=== PATIENT | male | born 1995 | race Caucasian/White ===

== ENCOUNTER 2021-12-02 11:53 | Inpatient (IN) | payer OTHER, SELFPAY ==
[2021-12-02 12:00] VITALS: BP 126/69; PULSE 84; RESP 16; TEMP 37.7; O2SAT 99; BMI 23.1
[2021-12-02] MEDS: KETOROLAC 30 MG/ML VIAL 15 MG IV (12:07)
--- NOTE | 2021-12-02 12:08 | ED.ABDPAIN ---
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 He said yesterday he was fine he worked however this morning woke up with pretty significant lower abdominal pain. [facility] he had [facility] CT which did confirm appendicitis, and sent here. He comes with a disc he says he has blood work I do not have report of the blood work. He definitely has pain with movement. Decreased appetite. Says his right over in the ambulance was quite painful. Related Data Home Medications Medication Instructions Recorded Confirmed No Known Home Medications 12/02/21 12/02/21 Allergies Allergy/AdvReac Type Severity Reaction Status Date / Time tree nut Allergy Verified 12/02/21 12:08 whey protein Allergy Uncoded 12/02/21 12:08 Review of Systems Review of Systems Narrative: GENERAL: Denies chills, fatigue, malaise, fever, sweats, travel HEENT: Denies sinus pain, ear pain, sore throat, difficulty swallowing, neck pain RESPIRATORY: Denies dyspnea, cough, wheezing, hemoptysis, sputum. CARDIOVASCULAR: Denies chest pain, palpitations, orthopnea, edema GASTROINTESTINAL: see HPI : Denies dysuria, frequency, incontinence, hematuria, urinary retention, flank pain. MUSCULOSKELETAL: Denies weakness, joint pain, or bony pain SKIN: No rash, no erythema, no pruritus NEUROLOGIC: Denies weakness, dizziness, headache, numbness, change in speech, confusion PSYCHIATRIC: No concerning psychosocial issues. 12 point review of systems is negative except for those stated above and HPI Patient History Social History household members: significant other Smoking Status: Never smoker alcohol intake: current Smoking Status: Never smoker alcohol intake frequency: holidays/special occasions only Substance Use Type: does not use Exam Initial Vital Signs Initial Vital Signs: Vital Signs Temperature 99.8 F H 12/02/21 12:00 Pulse Rate 84 12/02/21 12:00 Respiratory Rate 16 12/02/21 12:00 Blood Pressure 126/69 12/02/21 12:00 Pulse Oximetry 99 12/02/21 12:00 Oxygen Delivery Method 12/02/21 12:00 GENERAL: Alert 26-year-old male appears uncomfortable HEENT: Head atraumatic,EOMI, pupils reactive, face symmetric, moist mucous membranes CARDIOVASCULAR: Regular rate and rhythm without murmurs, rubs or gallops. RESPIRATORY: Breath sounds equal bilaterally, no wheezes rales or rhonchi. ABDOMEN: Soft, quite tender with peritoneal signs no distention more tender in right lower quadrant EXTREMITIES: Normal range of motion, no clubbing or edema. Neurovascularly intact NEUROLOGICAL: Alert and oriented x4. SKIN: Warm, dry, no laceration, no petechiae, no rashes or lesions. Course Orders Ordered: ED Orders 12/02/21 12:10 CBC Auto Diff [Complete Blood Count AUTO DIFF] Stat CMP [Comprehensive Metabolic Panel] Stat COVID19 -Nasal RAPID/Pre-Proc Stat Lipase Stat Acetaminophen (Acetaminophen 325 Mg Tablet) 650 mg PO Q6HR [facility] Last Admin: 12/02/21 17:11 Dose: Not Given Documented By: LDV Hydromorphone HCl (Hydromorphone 0.5 Mg Inj) 0.5 mg IV Q4H PRN PRN Reason: Breakthrough pain only (8-10) Last Admin: 12/02/21 15:35 Dose: 0.5 mg Documented By: LDV Sodium Chloride (Normal Saline 0.9%) 1,000 mls @ 100 mls/hr IV CONT [facility] Last Admin: 12/02/21 14:12 Dose: 100 mls/hr Documented By: TLS Piperacillin Sod/Tazobactam (Sod 3.375 gm/ Sodium Chloride) 100 mls @ 25 mls/hr IV Q8H [facility] Last Infusion: 12/02/21 19:11 Dose: 0 mls/hr Documented By: Admin: 12/02/21 14:12 Dose: 25 mls/hr Documented By: TLS Ketorolac Tromethamine (Ketorolac 30 Mg/Ml Vial) 30 mg IV Q6H [facility] Stop: 12/05/21 12:59 Last Admin: 12/02/21 18:03 Dose: 30 mg Documented By: Admin: 12/02/21 14:12 Dose: Not Given Documented By: TLS Ondansetron HCl (Ondansetron 4 Mg/2 Ml Inj) 4 mg IV Q8HR PRN PRN Reason: Nausea And Vomiting Last Admin: 12/02/21 13:17 Dose: 4 mg Documented By: ALEJO Oxycodone HCl (Oxycodone Ir 5 Mg Tablet) 5 mg PO Q4HR PRN PRN Reason: Pain, Moderate (4-6) Last Admin: 12/02/21 18:03 Dose: 5 mg Documented By: LDV Discontinued Medications Piperacillin Sod/Tazobactam (Sod 4.5 gm/ Sodium Chloride) 100 mls @ 200 mls/hr IV NOW ONE Stop: 12/02/21 12:20 Last Infusion: 12/02/21 13:18 Dose: 200 mls/hr Documented By: Admin: 12/02/21 12:32 Dose: 200 mls/hr Documented By: ALEJO Ketorolac Tromethamine (Ketorolac 30 Mg/Ml Vial) 15 mg IV NOW ONE Stop: 12/02/21 12:01 Last Admin: 12/02/21 12:07 Dose: 15 mg Documented By: ALEJO Morphine Sulfate (Morphine 2 Mg/Ml Inj) 2 mg IV NOW ONE Stop: 12/02/21 12:20 Last Admin: 12/02/21 12:32 Dose: 2 mg Documented By: ALEJO Morphine Sulfate (Morphine 4 Mg/Ml Inj) 4 mg IV NOW ONE Stop: 12/02/21 13:09 Last Admin: 12/02/21 13:14 Dose: 4 mg Documented By: ALEJO Vital Signs Vital signs: Vital Signs - 8 hr 12/02/21 12:00 Temperature 99.8 F H Pulse Rate 84 Respiratory Rate 16 Blood Pressure 126/69 Pulse Oximetry 99 Oxygen Delivery Method Room Air MDM - Abdominal Pain Lab Data Result diagrams: 12/02/21 12:10 12/02/21 12:10 Labs: Lab Results 12/02/21 12/02/21 12/02/21 Range/Units 12:10 12:10 12:10 WBC 14.3 H (4.5-11.0) X10^3/uL RBC 4.32 L (4.5-5.9) X10^6/uL Hgb 13.5 (13.5-17.5) g/dL Hct 39.8 L (41-53) % MCV 92.3 (80-100) fL MCH 31.3 (26-34) PG MCHC 33.9 (30-36) % RDW 12.8 (11.6-14.8) % Plt Count 194 (150-400) X10^3/uL Neut % (Auto) 83.8 H (50-75) % Lymph % (Auto) 8.2 L (25-40) % [place] % (Auto) 7.7 (3-14) % Eos % (Auto) 0.1 L (2-4) % Baso % (Auto) 0.2 (0-2) % Neut # (Auto) 72253 H (7506-3729) /uL Lymph # (Auto) 1200 (5985-9729) /uL [place] # (Auto) 1100 H (0-900) /uL Eos # (Auto) 0 (0-450) /uL Baso # (Auto) 0 (0-100) /uL Sodium 138 (137-145) mmol/L Potassium 3.7 (3.4-5.1) mmol/L Chloride 101 (98-107) mmol/L Carbon Dioxide 25 (22-32) mmol/L BUN 14 (9-20) mg/dL Creatinine 0.90 (0.66-1.25) mg/dL Estimated GFR > 60 (>60) mL/min BUN/Creatinine Ratio 15.6 (6-22) Glucose 107 H (70-100) mg/dL Calcium 9.4 (8.4-10.2) mg/dL Total Bilirubin 0.7 (0.2-1.3) mg/dL AST 23 (17-59) IU/L ALT 16 (<50) IU/L Alkaline Phosphatase 77 (38-126) U/L Total Creatine Kinase (55-170) U/L Total Protein 7.7 (6.3-8.2) g/dL Albumin 4.7 (3.5-5.0) g/dL Globulin 3.0 (1.7-4.1) g/dL Albumin/Globulin Ratio 1.6 (1.0-2.8) Lipase 48 (23-300) U/L SARS-CoV-2 (PCR) Negative (Negative) 12/02/21 Range/Units 12:10 WBC (4.5-11.0) X10^3/uL RBC (4.5-5.9) X10^6/uL Hgb (13.5-17.5) g/dL Hct (41-53) % MCV (80-100) fL MCH (26-34) PG MCHC (30-36) % RDW (11.6-14.8) % Plt Count (150-400) X10^3/uL Neut % (Auto) (50-75) % Lymph % (Auto) (25-40) % [place] % (Auto) (3-14) % Eos % (Auto) (2-4) % Baso % (Auto) (0-2) % Neut # (Auto) (0176-5595) /uL Lymph # (Auto) (6026-3090) /uL [place] # (Auto) (0-900) /uL Eos # (Auto) (0-450) /uL Baso # (Auto) (0-100) /uL Sodium (137-145) mmol/L Potassium (3.4-5.1) mmol/L Chloride (98-107) mmol/L Carbon Dioxide (22-32) mmol/L BUN (9-20) mg/dL Creatinine (0.66-1.25) mg/dL Estimated GFR (>60) mL/min BUN/Creatinine Ratio (6-22) Glucose (70-100) mg/dL Calcium (8.4-10.2) mg/dL Total Bilirubin (0.2-1.3) mg/dL AST (17-59) IU/L ALT (<50) IU/L Alkaline Phosphatase (38-126) U/L Total Creatine Kinase 110 (55-170) U/L Total Protein (6.3-8.2) g/dL Albumin (3.5-5.0) g/dL Globulin (1.7-4.1) g/dL Albumin/Globulin Ratio (1.0-2.8) Lipase (23-300) U/L SARS-CoV-2 (PCR) (Negative) MDM Narrative Medical decision making narrative: Blood work is pending. Records from [employer] [facility] are also pending however 1 note that I do have states that there is a CT that confirmed acute appendicitis without perforation or abscess. Dr. Hitchcock surgery has been notified and accepts patient. Requests Zosyn. Discharge Plan Departure Patient Disposition: Admitted As Inpatient Clinical Impression: Acute appendicitis Admit Date/Time: 09/13/22 12:33 Admit Provider: Felix Hitchcock
[2021-12-02 12:27] LABS: Add Manual Diff / Slide Review NO; Basophils Absolute Auto 0 /uL (0-100); Basophils Percent Auto 0.2 % (0-2); Eosinophils Absolute Auto 0 /uL (0-450); Eosinophils Percent Auto 0.1 % (2-4); Hematocrit 39.8 % (41-53); Hemoglobin 13.5 g/dL (13.5-17.5); Lymphocytes Absolute Auto 1200 /uL (1100-4500); Lymphocytes Percent Auto 8.2 % (25-40); Mean Corpuscular HGB Conc 33.9 % (30-36); Mean Corpuscular Hemoglobin 31.3 PG (26-34); Mean Corpuscular Volume 92.3 fL (80-100); Monocytes Absolute Auto 1100 /uL (0-900); Monocytes Percent Auto 7.7 % (3-14); Neutrophils Absolute Auto 12000 /uL (1500-7000); Neutrophils Percent Auto 83.8 % (50-75); Platelet Count 194 X10^3/uL (150-400); Red Blood Cell Count 4.32 X10^6/uL (4.5-5.9); Red Cell Distribution Width 12.8 % (11.6-14.8); White Blood Cell Count 14.3 X10^3/uL (4.5-11.0)
[2021-12-02] MEDS: MORPHINE 2 MG/ML INJ IV (12:32)
[2021-12-02] MEDS: PIPERACILLIN/TAZO 4.5 GM in SODIUM CHLORIDE 0.9% 100 ML IV (12:32)
[2021-12-02 12:41] LABS: COVID19 -Nasal RAPID Negative (Negative)
[2021-12-02 12:44] LABS: Alanine Aminotransferase 16 IU/L (<50); Albumin 4.7 g/dL (3.5-5.0); Albumin Globulin Ratio 1.6 (1.0-2.8); Alkaline Phosphatase 77 U/L (38-126); Aspartate Aminotransferase 23 IU/L (17-59); BUN Creatinine Ratio 15.6 (6-22); Bilirubin Total 0.7 mg/dL (0.2-1.3); Blood Urea Nitrogen 14 mg/dL (9-20); Calcium 9.4 mg/dL (8.4-10.2); Carbon Dioxide 25 mmol/L (22-32); Chloride 101 mmol/L (98-107); Estimated Glomerular Filt Rate > 60 mL/min (>60); Glucose 107 mg/dL (70-100); HEMOLYSIS < 15 (0-50); Lipase 48 U/L (23-300); Potassium 3.7 mmol/L (3.4-5.1); Sodium 138 mmol/L (137-145); Total Protein 7.7 g/dL (6.3-8.2)
[2021-12-02] MEDS: MORPHINE 4 MG/ML INJ IV (13:14)
[2021-12-02] MEDS: ONDANSETRON 4 MG/2 ML INJ IV (13:17)
[2021-12-02 13:30] VITALS: BP 113/64; PULSE 79; RESP 18; TEMP 36.2; O2SAT 99
[2021-12-02 13:38] VITALS: BMI 23.1
[2021-12-02 13:47] LABS: Creatine Kinase 110 U/L (55-170)
[2021-12-02 13:50] VITALS: O2SAT 99
--- NOTE | 2021-12-02 13:52 | PM.HP.1 ---
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 He developed abdominal pain was evaluated at the [facility] or he subsequently underwent a CT abdomen pelvis demonstrating appendicitis and then was transferred to our hospital. No prior abdominal surgery. He is feeling better than on arrival in is been receiving Zosyn. Patient History Family & Social History Social History: household members significant other Prior Living Arrangements House Safety & Behavioral: Feels Safe in Current Yes Environment Been Physically Hurt or No Threatened By a Person Tobacco & Substance use: Smoking Status Never smoker alcohol intake current alcohol intake frequency 0-2 drinks per day Substance Use Type does not use Meds Home Medications and Allergies Home Medications Medication Instructions Recorded Confirmed Type No Known Home Medications 12/02/21 12/02/21 History Allergies Allergy/AdvReac Type Severity Reaction Status Date / Time tree nut Allergy Verified 12/02/21 12:08 whey protein Allergy Uncoded 12/02/21 12:08 Exam Vital Signs (past 8 hours): - 12/02/21 12:00 12/02/21 13:30 12/02/21 13:50 Temperature 99.8 F H 97.2 F L Pulse Rate 84 79 Respiratory Rate 16 18 Blood Pressure 126/69 113/64 Pulse Oximetry 99 99 99 Oxygen Delivery Method Room Air Room Air Oxygen Flow Rate 0 0 Oxygen Delivery Method Room Air Oxygen Flow Rate 0 Narrative Exam Narrative: General adult male alert oriented no acute distress Chest nonlabored respirations Abdomen tender right lower quadrant. No hoang peritonitis. Objective Labs Result Diagrams: 12/02/21 12:10 12/02/21 12:10 Labs: Laboratory Results - last 24 hr 12/02/21 12/02/21 12/02/21 12:10 12:10 12:10 WBC 14.3 H RBC 4.32 L Hgb 13.5 Hct 39.8 L MCV 92.3 MCH 31.3 MCHC 33.9 RDW 12.8 Plt Count 194 Neut % (Auto) 83.8 H Lymph % (Auto) 8.2 L [place] % (Auto) 7.7 Eos % (Auto) 0.1 L Baso % (Auto) 0.2 Neut # (Auto) 85262 H Lymph # (Auto) 1200 [place] # (Auto) 1100 H Eos # (Auto) 0 Baso # (Auto) 0 Sodium 138 Potassium 3.7 Chloride 101 Carbon Dioxide 25 BUN 14 Creatinine 0.90 Estimated GFR > 60 BUN/Creatinine Ratio 15.6 Glucose 107 H Calcium 9.4 Total Bilirubin 0.7 AST 23 ALT 16 Alkaline Phosphatase 77 Total Creatine Kinase Total Protein 7.7 Albumin 4.7 Globulin 3.0 Albumin/Globulin Ratio 1.6 Lipase 48 SARS-CoV-2 (PCR) Negative 12/02/21 12:10 WBC RBC Hgb Hct MCV MCH MCHC RDW Plt Count Neut % (Auto) Lymph % (Auto) [place] % (Auto) Eos % (Auto) Baso % (Auto) Neut # (Auto) Lymph # (Auto) [place] # (Auto) Eos # (Auto) Baso # (Auto) Sodium Potassium Chloride Carbon Dioxide BUN Creatinine Estimated GFR BUN/Creatinine Ratio Glucose Calcium Total Bilirubin AST ALT Alkaline Phosphatase Total Creatine Kinase 110 Total Protein Albumin Globulin Albumin/Globulin Ratio Lipase SARS-CoV-2 (PCR) Assessment & Plan Assessment and plan (1) Acute appendicitis: Status: Acute Assessment & Plan narrative: 26-year-old male with appendicitis without abscess. I reviewed his CT abdomen pelvis images personally which demonstrates acute appendicitis without abscess or free air. We discussed management options including conservative therapy and surgical intervention. He is concerned about the risk of recurrence with conservative management and his preference is to proceed with appendectomy which can be accommodated tomorrow. Overview the operation was discussed with the patient. Operative risks including bleeding, infection, damage to surrounding structures, anesthetic complication and were discussed. His questions have been answered he is in agreement with this plan. -diet as tolerated until midnight -Zosyn Time Spent With Patient Critical Care time: I spent a total of [] minutes of critical care time on this patient's care today; this time is exclusive of procedural time. Quality VTE Deep Vein Thrombosis/Pulmonary Embolism Present on Admission: No
[2021-12-02] MEDS: PIPERACILLIN/TAZO 3.375 GM in SODIUM CHLORIDE 0.9% 100 ML IV ×2 (14:12→20:10)
[2021-12-02] MEDS: SODIUM CHLORIDE 0.9% 1,000 ML 100 ML IV (14:12)
[2021-12-02] MEDS: HYDROMORPHONE 0.5 MG INJ IV (15:35)
[2021-12-02 17:00] VITALS: BP 107/61; PULSE 72; RESP 18; TEMP 36.7; O2SAT 100
[2021-12-02] MEDS: KETOROLAC 30 MG/ML VIAL IV (18:03)
[2021-12-02] MEDS: OXYCODONE IR 5 MG TABLET PO (18:03)
[2021-12-02 19:35] VITALS: O2SAT 98
[2021-12-02 20:50] VITALS: BP 100/61; PULSE 71; RESP 22; TEMP 36.8; O2SAT 98
[2021-12-03] VITALS (16 sets, daily range): BP systolic 99–137; BP diastolic 57–71; PULSE 63–92; RESP 12–20; TEMP 36.1–37.2; O2SAT 98–100; BMI 22.9
--- NOTE | 2021-12-03 | PATH_ITS ---
[facility] Accession Number: [id number] . 01 Material submitted: . appendix - APPENDIX . 01 Diagnosis: Vermiform Appendix, Appendectomy: Acute transmural appendicitis and periappendicitis. Negative for neoplasia. MRV 12/05/2021 1649 Local . 01 Electronically signed: . Deepika Ellis MD, Pathologist NPI- [id number] . 01 Gross description: . The specimen is received in formalin labeled with the patient's name and appendix, and consists of a vermiform appendix measuring 8.5 cm in length and 1.0 cm in diameter. The serosa is rowe with a moderate amount of white adherent material consistent with exudate. No perforations are identified. The surgical margin is received closed with aida which are moved, and the margin is inked blue. Sectioning reveals a patent pinpoint lumen averaging 0.1 cm in diameter with no fecaliths identified. The liz are rowe and average 0.3 cm thick. No lesions are identified. Asbestos Handler sections to include the surgical margin, one-half of the bisected distal tip, and field support representative cross-sections are submitted in cassette A1. ([id number]) /MRV 12/04/2021 1229 Local . 01 Pathologist provided ICD-10: K35.80 . 01 CPT . 613272 Specimen Comment: A courtesy copy of this report has been sent to [phone] Performed at: [address] [facility] [address], [id number] MD Gerardo Bush MD Phone: [phone]
[2021-12-03] MEDS: SODIUM CHLORIDE 0.9% 1,000 ML 100 ML IV ×2 (00:36→10:10)
[2021-12-03] MEDS: ACETAMINOPHEN 325 MG TABLET 650 MG PO ×3 (00:37→18:23)
[2021-12-03] MEDS: OXYCODONE IR 5 MG TABLET PO ×3 (00:37→21:06)
[2021-12-03] MEDS: KETOROLAC 30 MG/ML VIAL IV ×2 (00:37→05:57)
[2021-12-03] MEDS: PIPERACILLIN/TAZO 3.375 GM in SODIUM CHLORIDE 0.9% 100 ML IV (05:47)
[2021-12-03 06:08] LABS: Add Manual Diff / Slide Review NO; Basophils Absolute Auto 0 /uL (0-100); Basophils Percent Auto 0.4 % (0-2); Eosinophils Absolute Auto 100 /uL (0-450); Eosinophils Percent Auto 1.1 % (2-4); Hematocrit 35.6 % (41-53); Lymphocytes Absolute Auto 1700 /uL (1100-4500); Mean Corpuscular HGB Conc 33.8 % (30-36); Mean Corpuscular Hemoglobin 31.2 PG (26-34); Mean Corpuscular Volume 92.4 fL (80-100); Monocytes Absolute Auto 1100 /uL (0-900); Monocytes Percent Auto 10.5 % (3-14); Neutrophils Absolute Auto 7100 /uL (1500-7000); Platelet Count 171 X10^3/uL (150-400); Red Blood Cell Count 3.85 X10^6/uL (4.5-5.9); Red Cell Distribution Width 12.6 % (11.6-14.8); White Blood Cell Count 10.1 X10^3/uL (4.5-11.0)
--- NOTE | 2021-12-03 07:53 | SUR.PREOP ---
12/03/21-chart reviewed for pending surgery today.
--- NOTE | 2021-12-03 10:24 | PC.NURSE ---
Addendum entered by Barbi Gray R.N. 12/03/21 17:13: Returned from PACU @ 1500 A/O 3 lap site across abdomen, CDI ELVIRA drain intact/patent, some drainage noted on dsg. Denies discomfort @ this time. Satisfactory post op course. Call light w/in reach, pt calls appropriately for needs. Continue w/plan of care. Addendum entered by Barbi Gray R.N. 12/03/21 12:32: 1125: pt escorted to OR by staff. \ Original Note: Pt A/O, denies discomfort at this time SpO2 99% RA IVF NS @ 100cc/hr infusing into the RAC via pump w/o incidence. Pt NPO for surgery this afternoon. Call light w/in reach, pt calls appropriately for needs.
--- NOTE | 2021-12-03 10:51 | CM.DANOTE ---
DCP Assessment: Payor confirmed: Sarahi Pollard PCP: [facility] PCM. Pt is a 26 y.o. M who presented to the ER for acute appenditicits. Pt was seen at [facility] and CT showed appendicitis. Pt complained of pain upon movement. Dr. Hitchcock was notified and accepted the pt. Pt to have appendectomy today @ 1215. DCP met with pt and pt significant other this morning to discuss discharge needs. Pt laying in bed. DCP introduced self and role. Pt is independent at baseline. No DME's. Drives POV. Works on the [facility]. Significant other, Rut, will take pt home in POV upon discharge. Pt thankful for discussion. White board updated and instructed to call. P: Pt to have surgical procedure this afternoon. Once pt is medically stable for discharge, pt to discharge home via [employer] POV. DCP available if discharge needs arise. Karena Santiago RN/TORI Discharge Planning/Care Management CM Discharge Assessment Start: 12/03/21 10:50 Freq: Status: Active Protocol: Document 12/03/21 10:50 LATONIA (Rec: 12/03/21 10:51 [id number]) Discharge Planning Assessment Assigned Website Designer Karena Santiago RN/TORI Advance Directives? No History Provided By Patient Prior Living Arrangements House Household Members significant other Type of transporation used prior to Drives own vehicle admit Independent with ADL's Yes Is patient alert and oriented? Yes Caregiver for Another No Barriers to Discharge No Discharge Plan Home Referrals Initiated None needed Whiteboard Updated in Patient Room with Yes name and ext. # of Website Designer Comment Instructed to call Review Status In Process Please Provide Date Initial DC 12/03/21 Assessment Was Performed Next Review Type Continued Stay Review
--- NOTE | 2021-12-03 12:18 | PM.PREOP ---
Pre-operative Note COVID-19 COVID-19 status: Negative Result date/Date tested (Pos, Neg/Pending): 12/02/21 Criteria for continued procedure: Expected advancement of disease process Interval Note History & Physical reviewed/Exam performed by Physician: Yes Changes to H&P: No
--- NOTE | 2021-12-03 13:19 | SUR.OPER ---
Supine on padded OR bed, head on pillow, arms padded and tucked at sides, legs uncrossed, safety belt at thigh, tape over blanket over lower legs .
--- NOTE | 2021-12-03 14:27 | PM.OP.1 ---
Operative Date/Time/Diagnoses Date of procedure: 12/03/21 Time of procedure: 14:27 Pre-op diagnosis: Acute appendicitis Post-op diagnosis: other (Ruptured appendicitis) Procedure & Clinicians Procedure: Laparoscopic appendectomy Same procedure as scheduled: Yes Indications: Ruptured appendicitis Surgeon: Deepika Barker Click Yes if Unassisted: Yes Anesthesia Type: General Operative Notes Findings: Grade 3 appendicitis, ruptured Closure Type: primary Specimen(s): none sent (Appendix) Applied: drain(s) Procedure in detail: Preop diagnosis: Acute appendicitis Postop diagnosis: ruptured appendicitis Operative procedure: Laparoscopic appendectomy Surgeon: Danya Barker MD Anesthetic: General with ET tube intubation with local Findings: Ruptured appendicitis Procedure: Patient placed in a supine position. Prepped and draped in sterile fashion to expose the abdomen. Infraumbilical port site was placed using an open technique a 12 mm port. Insufflation began all other ports were placed under direct vision including a 5 mm port the suprapubic position. One 5 mm port in the left lateral abdomen. Appendix was identified along with free fluid in the pelvis that was purulent. I dissected the appendix bluntly from surrounding inflammation exposing the mesentery. Mesentery was taken down electrocautery. Base of the appendix was healthy in nature. I used a CALVIN stapling device to amputate the appendix and placed it into an Endo-Catch bag. Endo-Catch bag was pulled through the infraumbilical port site intact. I then irrigated and suctioned the abdomen to a clear return particularly the pelvis. A 15 Mayo drain was placed into the pelvis through the suprapubic port site. Drain was sutured to the skin with 3-0 nylon. Positioned in the pelvis looping up to the right colic gutter. Ports removed and closure began. Closure consisted of interrupted 0 Vicryl for fascial closure. Skin was closed a running 4-0 Vicryl. Steri-Strips and sterile dressings were placed. Patient was awakened, extubated, taken to recovery room in stable condition with needle, instrument, sponge counts correct. Blood loss: 10 mL Specimen: Appendix
[2021-12-03] MEDS: BUPIVACAINE 0.5% W/ EPI (PF) 30 ML VIAL INJ (15:19)
[2021-12-03] MEDS: AMOXICILLIN/CLAV 500/125 MG 1 TAB PO ×2 (15:46→21:06)
[2021-12-04] VITALS: BP 121/53; PULSE 74; RESP 18; TEMP 36.3; O2SAT 100
[2021-12-04] MEDS: ACETAMINOPHEN 325 MG TABLET 650 MG PO ×3 (00:40→12:17)
[2021-12-04] MEDS: HYDROMORPHONE 0.5 MG INJ IV ×2 (00:41→05:03)
[2021-12-04] MEDS: ONDANSETRON 4 MG/2 ML INJ IV (00:46)
[2021-12-04 04:00] VITALS: BP 115/48; PULSE 64; RESP 18; TEMP 36.3; O2SAT 98
--- NOTE | 2021-12-04 04:35 | PC.NURSE ---
Pt stated pain and nausea at 0000ish. Medicated X1 w/ scheduled ibuprofen, dilauded and zofran, has been sleeping since. RN placed island dressing over ELVIRA tube dressing/incision due to blood oozing out of dressing. Other incisions are CDI. Pt is cooperative with care and pleasant with staff.
[2021-12-04 06:00] VITALS: O2SAT 97
[2021-12-04 08:00] VITALS: BP 120/58; O2SAT 100
[2021-12-04 08:18] LABS: Add Manual Diff / Slide Review NO; Basophils Absolute Auto 0 /uL (0-100); Basophils Percent Auto 0.1 % (0-2); Eosinophils Absolute Auto 0 /uL (0-450); Hemoglobin 11.8 g/dL (13.5-17.5); Lymphocytes Absolute Auto 700 /uL (1100-4500); Mean Corpuscular HGB Conc 33.6 % (30-36); Mean Corpuscular Hemoglobin 31.2 PG (26-34); Mean Corpuscular Volume 92.7 fL (80-100); Monocytes Absolute Auto 600 /uL (0-900); Monocytes Percent Auto 4.7 % (3-14); Neutrophils Absolute Auto 12200 /uL (1500-7000); Neutrophils Percent Auto 90.2 % (50-75); Platelet Count 162 X10^3/uL (150-400); Red Blood Cell Count 3.78 X10^6/uL (4.5-5.9); Red Cell Distribution Width 12.4 % (11.6-14.8); White Blood Cell Count 13.5 X10^3/uL (4.5-11.0)
[2021-12-04 09:02] VITALS: O2SAT 100
[2021-12-04] MEDS: AMOXICILLIN/CLAV 500/125 MG 1 TAB PO (09:02)
--- NOTE | 2021-12-04 11:03 | P.PN_ITS ---
Subjective Subjective Date Patient Seen: 12/04/21 Time Patient Seen: 11:03 Interval history: feeling well. Interested in going home. Exam Vital Signs (past 8 hours): - 12/04/21 06:00 12/04/21 04:00 12/04/21 06:00 Temperature 97.3 F L Pulse Rate 64 Respiratory Rate 18 Blood Pressure 115/48 L Pulse Oximetry 98 97 Oxygen Delivery Method Room Air Room Air Oxygen Flow Rate 0 12/04/21 08:00 12/04/21 09:02 Temperature Pulse Rate Respiratory Rate Blood Pressure 120/58 L Pulse Oximetry 100 100 Oxygen Delivery Method Room Air Oxygen Flow Rate 0 Oxygen Delivery Method Room Air Oxygen Flow Rate 0 Narrative Exam Narrative: drain is sero sang. WBC is 13,000. Abdomen is benign. Objective Labs Result Diagrams: 12/04/21 07:46 12/02/21 12:10 Labs: Laboratory Results - last 24 hr 12/04/21 07:46 WBC 13.5 H RBC 3.78 L Hgb 11.8 L Hct 35.0 L MCV 92.7 MCH 31.2 MCHC 33.6 RDW 12.4 Plt Count 162 Neut % (Auto) 90.2 H Lymph % (Auto) 5.0 L [place] % (Auto) 4.7 Eos % (Auto) 0.0 L Baso % (Auto) 0.1 Neut # (Auto) 75437 H Lymph # (Auto) 700 L [place] # (Auto) 600 Eos # (Auto) 0 Baso # (Auto) 0 PFSH Social History household members: significant other Smoking Status: Never smoker alcohol intake: current Assessment & Plan Assessment & Plan narrative: s/p lap appy for perforated appendicitis Home after drain removal on 5 days bid Augmentin follow up w [facility]-2 weeks Time Spent With Patient Critical Care time: I spent a total of [] minutes of critical care time on this patient's care today; this time is exclusive of procedural time. Quality VTE Deep Vein Thrombosis/Pulmonary Embolism Present on Admission: No
--- NOTE | 2021-12-04 11:06 | PM.DS.1 ---
History of Present Illness History of Present Illness Date Patient Seen: 12/04/21 Time Patient Seen: 11:06 Chief complaint: Appendicitis Narrative: S/p lap appy for perforated appendicitis. No post op complications Discharge Providers Provider Date of admission: 12/02/21 12:33 Discharge Date: 12/04/21 Primary care physician: Roberto GUTIERREZ Provider Discharge provider: Deepika Barker MD Summary Hospital Course Discharge Diagnosis: perforated appendicitis Hospital Course: IV antibiotics with Lap appy and drain Status at Discharge Cognitive/behavioral status at discharge: at baseline, oriented Functional status at discharge: independent ambulation Overall status at discharge: patient is progressing back to baseline Time Spent with Patient Time spent: Less than 30 minutes Exam Vital Signs (past 8 hours): - 12/04/21 06:00 12/04/21 04:00 12/04/21 06:00 Temperature 97.3 F L Pulse Rate 64 Respiratory Rate 18 Blood Pressure 115/48 L Pulse Oximetry 98 97 Oxygen Delivery Method Room Air Room Air Oxygen Flow Rate 0 12/04/21 08:00 12/04/21 09:02 Temperature Pulse Rate Respiratory Rate Blood Pressure 120/58 L Pulse Oximetry 100 100 Oxygen Delivery Method Room Air Oxygen Flow Rate 0 Oxygen Delivery Method Room Air Oxygen Flow Rate 0 Narrative Exam Narrative: Pulmonary and cardiac stable Gi functioning Abdomen is soft and benign, drain is serous and will be removed prior to discharge Objective Labs Result Diagrams: 12/04/21 07:46 12/02/21 12:10 Labs: Laboratory Results - last 24 hr 12/04/21 07:46 WBC 13.5 H RBC 3.78 L Hgb 11.8 L Hct 35.0 L MCV 92.7 MCH 31.2 MCHC 33.6 RDW 12.4 Plt Count 162 Neut % (Auto) 90.2 H Lymph % (Auto) 5.0 L Ro[place] % (Auto) 4.7 Eos % (Auto) 0.0 L Baso % (Auto) 0.1 Neut # (Auto) 23212 H Lymph # (Auto) 700 L [place] # (Auto) 600 Eos # (Auto) 0 Baso # (Auto) 0 PFSH Social History household members: significant other Smoking Status: Never smoker alcohol intake: current Discharge Assessment & Plan Assessment and Plan Assessment: s/p lap appy for ruptured appendicitis Plan of Treatment: Home with lifting restrictions and 5 more days of Augmentin Follow up 1-2 weeks at [facility] Discharge Plan Discharge Plan Patient Disposition: Home Discharge orders & Medications Prescriptions: New amoxicillin-pot clavulanate [Augmentin] 500-125 mg Tablet 1 tab PO BID Qty: 10 0RF oxycodone 5 mg Tablet 5 mg PO Q4HR PRN (Reason: Pain, Moderate (4-6)) Qty: 15 0RF Follow up/Referrals: Deepika Barker MD [Physician] - (post op appy see in 1-2 weeks) ProviderRoberto [Primary Care Provider] - Diet/Activity/Treatments Diet: Diet as Tolerated Activity: no contact sports or lifting >15lbs for 4 weeks Cold/Heat Therapy: ice packs to abdomen are helpful Skin/Wound/Dressing Care Report to your healthcare provider any signs of infection, such as:: chills, fever, increased pain, unusual drainage and unusual redness Visit Report/Discharge Packet Instructions: DI for an Appendectomy, DI for Laparoscopy, DI for Prescription Opioid Use, [facility]: Wound Care Stand Alone Forms: Surgery Discharge Discharge Data Primary Care Provider: Roberto Miller Quality VTE Deep Vein Thrombosis/Pulmonary Embolism Present on Admission: No
[2021-12-04] MEDS: OXYCODONE IR 5 MG TABLET PO (12:14)
--- NOTE | 2021-12-04 12:25 | PC.NURSE ---
sutures removed. ELVIRA drain removed covered with gauze and tegaderm. patient tolerated well. dc instructions given.
[2021-12-04 13:23] VITALS: O2SAT 100
== END 2021-12-04 13:29 | disposition home or self-care (01) | DRG 340 ==
LOC: ED 12:31 → AC 12:33
PROVIDERS: Surgery; Admitting Provider Surgery; Emergency Provider Emergency Medicine; Referring Provider Emergency Medicine; Visit Provider Surgery
PROC: 0DTJ4ZZ Resection of Appendix, Percutaneous Endoscopic Approach (ICD-10-PCS; CPT 44970; principal; 2021-12-03 12:15)
DX: K35.32 Acute appendicitis with perforation, localized peritonitis, and gangrene, without abscess (principal); Z20.822 Contact with and (suspected) exposure to COVID-19
CPT/HCPCS: 36415; 44970; 80053; 82550; 83690; 85025; 87635; 96365; 96375; 96376; 99222; 99283; 99284; C9803; J1170; J1885; J2270; J2405; J2543; J3010